=== PATIENT | female | born 1990 | race American Indian/Alaskan Native ===

== ENCOUNTER 2017-06-20 03:57 | Inpatient (IN) | payer MEDICAID ==
[2017-06-20] MEDS ORDERED: LACTATED RINGERS 0 ML ONE (04:22)
[2017-06-20] MEDS ORDERED: PITOCin/NS 20 UNIT/1000ML DRIP 20,000 MILLIUNITS/1,000 ML BAG IV ONE (04:22)
--- NOTE | 2017-06-20 04:46 | History and Physical Report ---
History of Present Illness Date of examination: 06/20/17 Date of admission: 06/20/17 04:35 Chief complaint: Labor History of present illness: Pt is a 27yo BF EDC 06/15/17; EGA 40 5/7 weeks presents to L&D complaining of RUC's q 3-4 mins. She received care in [place], but does not have records, and GBS is unknown. Past History Past Medical History: no pertinent history Past Surgical History: no surgical history Family/Genetic History: none Social history: no significant social history, single - Obstetrical History Expected Date of Delivery: 06/15/17 Actual Gestation: 40 Week(s) 5 Day(s) Review of Systems All systems: negative - Vital Signs Vital signs: Vital Signs Pulse BP 93 H 139/91 06/20/17 04:17 06/20/17 04:17 Temp Pulse Resp BP Pulse Ox 97 H 145/64 06/20/17 04:18 06/20/17 04:18 - Physical Exam Breasts: Positive: deferred Cardiovascular: Regular rate Lungs: Positive: Clear to auscultation Abdomen: Positive: normal appearance Genitourinary (Female): Positive: normal external genitalia Uterus: Positive: enlarged Extremities: Positive: normal - Obstetrical FHR: category 1 Uterine Contraction Monitor Mode: External Cervical Dilatation: 10 Cervical Effacement Percentage: 100 station: +2 Uterine Contraction Pattern: Regular Uterine Tone Measurement Phase: Contraction Uterine Contraction Intensity: Strong/Firm Results All other labs normal. Assessment and Plan - Patient Problems (1) 40 weeks gestation of Onset Date: 06/20/17 Current Visit: Yes Status: Acute Plan to address problem: A: IUP @ 40 5/7 weeks in labor Limited care Unknown GBS P: Admit to L&D for expectant vaginal delivery IV Ampicillin Obtain records
--- NOTE | 2017-06-20 04:47 | Procedure Note ---
OB Delivery Note - Delivery Date of Delivery: 06/20/17 Surgeon: SHAKA LUONG Estimated blood loss: 200cc - Vaginal Delivery presentation: vertex Delivery position: OA Intrapartum events: no care, precipitous labor- <3hr Delivery induction: none Delivery augmentation: rupture of membranes Delivery monitor: external FHT, external uterine Route of delivery: Delivery placenta: spontaneous Delivery cord: 3 umbilical vessels Episiotomy: none Delivery laceration: none Anesthesia: none Delivery comments: Infant delivered OA and placed on Mom's chest for duno-ty-csau bonding and delayed cord clamping - Infant A at 1 minute: 9 at 5 minutes: 9 Infant Gender: Male ([id number])
[2017-06-20] MEDS ORDERED: BRETHINE IVP PRN (04:50)
[2017-06-20] MEDS ORDERED: ePHEDrine SULFATE IV PRN (04:50)
[2017-06-20] MEDS ORDERED: MINERAL OIL PO PRN (04:50)
[2017-06-20] MEDS ORDERED: BRETHINE SUB-Q PRN (04:50)
[2017-06-20] MEDS ORDERED: XYLOCAINE 2% INFILTRATI ONE (04:50)
[2017-06-20] MEDS ORDERED: PHENERGAN PR PRN (04:52)
[2017-06-20] MEDS ORDERED: ZOFRAN IV PRN (04:52)
[2017-06-20] MEDS ORDERED: TYLENOL PO PRN (04:52)
[2017-06-20] MEDS ORDERED: BENADRYL PO PRN (04:52)
[2017-06-20] MEDS ORDERED: PHENERGAN PO PRN (04:52)
[2017-06-20] MEDS ORDERED: NORCO 5/325 PO PRN (04:52)
[2017-06-20] MEDS ORDERED: TUCKS PAD TP PRN (04:52)
[2017-06-20] MEDS ORDERED: MILK OF MAGNESIA PO PRN (04:52)
[2017-06-20] MEDS ORDERED: DULCOLAX PR PRN (04:52)
[2017-06-20] MEDS ORDERED: LANSINOH TP PRN (04:52)
[2017-06-20] MEDS ORDERED: SODIUM CHLORIDE FLUSH SYRINGE 10 ML IV NR (05:00)
[2017-06-20] MEDS ORDERED: PITOCin/NS 20 UNIT/1000ML DRIP 20 UNITS/1,000 ML BAG IV SCH ×2 (05:00)
[2017-06-20] MEDS ORDERED: LACTATED RINGERS 1,000 ML IV SCH (05:00)
[2017-06-20] MEDS ORDERED: PITOCin/NS 30 UNIT/500ML 30 UNITS/500 ML BAG IV SCH (05:00)
[2017-06-20 05:38] LABS: Hematocrit 31.2 % (30.3-42.9); Hemoglobin 10.6 gm/dl (10.1-14.3); Mean Corpuscular HGB Conc 34 % (30-34); Mean Corpuscular Hemoglobin 31 pg (28-32); Mean Corpuscular Volume 91 fl (79-97); Platelet Count 225 K/mm3 (140-440); Red Blood Count 3.43 M/mm3 (3.65-5.03); Red Cell Distribution Width 15.3 % (13.2-15.2)
[2017-06-20 07:21] LABS: Rubella IgG Antibody Immune (Immune)
[2017-06-20 11:09] LABS: Hepatitis C Virus Antibody Non-Reactive (NonReactive)
[2017-06-20] MEDS: PRENATAL VITAMIN PO SCH (11:09)
[2017-06-20] MEDS: COLACE PO SCH ×2 (11:09→21:43)
[2017-06-20] MEDS: MOTRIN PO SCH ×2 (11:09→18:30)
[2017-06-20] MEDS: FEOSOL PO SCH ×2 (11:09→21:44)
[2017-06-20 17:31] LABS: Hematocrit 31.7 % (30.3-42.9); Hemoglobin 10.7 gm/dl (10.1-14.3)
[2017-06-21] MEDS ORDERED: M-M-R II VACCINE SUB-Q ONE (06:00)
[2017-06-21] MEDS ORDERED: BOOSTRIX IM ONE (06:00)
[2017-06-21] MEDS: MOTRIN PO SCH ×4 (06:19→18:14)
--- NOTE | 2017-06-21 10:38 | Progress Note ---
Assessment and Plan - Patient Problems (1) 40 weeks gestation of Onset Date: 06/20/17 Current Visit: Yes Status: Resolved (2) (normal spontaneous vaginal delivery) Onset Date: 06/21/17 Current Visit: Yes Status: Resolved Plan to address problem: A: S/P - PPD #1 Doing well Asymptomatic anemia - stable P: May go home tomorrow Subjective - Subjective Date of service: 06/21/17 Principal diagnosis: s/p - PPD #1 Interval history: Pt is feeling well, bleeding improved. No complaints. Patient reports: appetite normal, voiding normally, pain well controlled, flatus , ambulating normally, no dizzy ambulation, no nauseated : doing well, nursing well Objective - Vital Signs Latest vital signs: Vital Signs Temp Pulse Resp BP BP Pulse Ox 06/21/17 00:00 98.4 F 98 H 16 117/55 98 06/20/17 16:48 98.6 F 77 18 112/67 98 06/20/17 12:16 98.2 F 68 20 115/65 99 06/20/17 12:15 98.2 F 75 18 115/65 99 Intake and Output 06/20/17 06/21/17 06/21/17 22:59 06:59 14:59 Intake Total 480 Balance 480 Intake: Oral 480 Other: Total, Intake Amount 240 # Voids Void 1 1 - Exam Breasts: Present: deferred Cardiovascular: Present: Regular rate Lungs: Present: Clear to auscultation Abdomen: Present: normal appearance, soft Uterus: Present: normal, firm, fundal height below umbilicus Extremities: Present: normal - Labs Labs: Laboratory Tests 06/20/17 06/20/17 06/20/17 05:10 05:10 05:10 WBC 4.1 L RBC 3.43 L Hgb 10.6 Hct 31.2 MCV 91 MCH 31 MCHC 34 RDW 15.3 H Plt Count 225 Sickle Cell Screen RPR Nonreactive Hep Bs Antigen Hepatitis C Antibody HIV 1&2 Antibody Rapid HIV P24 Antigen Rubella IgG Antibody Blood Type B POSITIVE Antibody Screen Negative 06/20/17 06/20/17 06/20/17 05:10 05:10 05:10 WBC RBC Hgb Hct MCV MCH MCHC RDW Plt Count Sickle Cell Screen Negative RPR Hep Bs Antigen Non-reactive Hepatitis C Antibody Non-reactive HIV 1&2 Antibody Rapid HIV P24 Antigen Rubella IgG Antibody Immune Blood Type Antibody Screen 06/20/17 06/20/17 05:10 16:56 WBC RBC Hgb 10.7 Hct 31.7 MCV MCH MCHC RDW Plt Count Sickle Cell Screen RPR Hep Bs Antigen Hepatitis C Antibody HIV 1&2 Antibody Rapid Non react HIV P24 Antigen Non react Rubella IgG Antibody Blood Type Antibody Screen
--- NOTE | 2017-06-21 11:37 | Discharge Summary ---
Providers - Providers Date of Admission: 06/20/17 04:35 Date of discharge: 06/22/17 Attending physician: SHAKA LUONG Primary care physician: SHAKA LUONG Hospitalization Reason for admission: active labor, IUP at term Delivery: Episiotomy: none Laceration: none Other procedures: none complications: none Discharge diagnosis: IUP at term delivered [place] baby: male Hospital course: Unremarkable. Condition at discharge: Good Disposition: DC-01 TO HOME OR SELFCARE - Discharge Diagnoses (1) 40 weeks gestation of Status: Resolved (2) (normal spontaneous vaginal delivery) Status: Resolved Plan - Discharge Medications Prescriptions: Ferrous Sulfate [Feosol 325 MG tab] 325 mg PO BID #60 tablet Ibuprofen [Motrin 600 MG tab] 600 mg PO Q6H #30 tablet Vit-Fe Fumar-FA [ Vitamin] 1 each PO QDAY #30 tablet - Provider Discharge Summary Activity: routine, no sex for 6 weeks, no heavy lifting 4 weeks, no strenuous exercise Diet: routine Instructions: routine Additional instructions: [] Smoking cessation referral if applicable(refer to patient education folder for contact #) [] Refer to [facility] Booklet Call your doctor immediately for: * Fever > 100.5 * Heavy vaginal bleeding ( >1 pad per hour) * Severe persistent headache * Shortness of breath * Reddened, hot, painful area to leg or breast * Drainage or odor from incision. * Keep incision clean and dry at all times and follow doctor's instructions regarding bathing/showering - Follow up plan Follow up: SHAKA LUONG MD [Primary Care Provider] - 6 Weeks
[2017-06-21] MEDS: COLACE PO SCH (11:47)
[2017-06-21] MEDS: PRENATAL VITAMIN PO SCH (11:47)
[2017-06-21] MEDS: FEOSOL PO SCH (11:47)
[2017-06-22 09:20] VITALS: BP 114/55
[2017-06-22] MEDS ORDERED: Fluarix Quad 2017-2018(36 MOS+ IM ONE (12:00)
[2017-06-22] MEDS: FEOSOL PO SCH (15:18)
[2017-06-22] MEDS: MOTRIN PO SCH (15:18)
[2017-06-22] MEDS: COLACE PO SCH (15:18)
[2017-06-22] MEDS: PRENATAL VITAMIN PO SCH (15:18)
== END 2017-06-22 14:30 | disposition home or self-care (01) | DRG 775 ==
LOC: TRG 03:57 → LD 04:35 → OB 06:17
PROVIDERS: ADMIT Obstetrics & Gynecology; ATTEND Obstetrics & Gynecology
PROC: 10E0XZZ Delivery of Products of Conception, External Approach (ICD-10-PCS; principal; 2017-06-20)
PROC: 3E0234Z Introduction of Serum, Toxoid and Vaccine into Muscle, Percutaneous Approach (ICD-10-PCS; 2017-06-21)
DX: O62.3 Precipitate labor (principal); O99.03 Anemia complicating the puerperium; D64.9 Anemia, unspecified; Z3A.40 40 weeks gestation of pregnancy; Z37.0 Single live birth; Z23 Encounter for immunization
CPT/HCPCS: 36415; 85014; 85018; 85027; 85660; 86592; 86706; 86762; 86803; 86850; 86900; 86901; 87806; 90686; 90715; 99211; G0463; J2590; J7120